=== PATIENT | female | born 1975 | race African-American/Black ===

== ENCOUNTER 2017-01-05 07:35 | Emergency (ER) | payer OTHER ==
[2017-01-05 07:45] VITALS: BP 134/89; PULSE 74; TEMP 98.4; BMI 32.6
[2017-01-05] MEDS ORDERED: ACETAMINOPHEN 1000 MG/100 ML VIAL (NON FORMULARY) IVPB ONE (08:10)
[2017-01-05 08:41] LABS: BASOPHIL 0.4 % (0-2.0); EOSINOPHIL 3.1 % (0-4.5); MCH 23.3 pg (25.7-33.7); MEAN CELL VOLUME 72.9 fl (80-96); MEAN PLT VOLUME 8.1 fl (7.5-11.1); NEUTROPHILS 55.6 % (42.8-82.8); PLATELET COUNT 296 K/MM3 (134-434); RDW 16.3 % (11.6-15.6); WHITE BLOOD COUNT 7.1 K/mm3 (4.0-10.0)
[2017-01-05] MEDS ORDERED: KETOROLAC TROMETHAMINE 15 MG/ML VIAL ONE (08:58)
[2017-01-05] MEDS ORDERED: KETOROLAC TROMETHAMINE 15 MG/ML VIAL IVPUSH ONE (09:02)
--- NOTE | 2017-01-05 09:15 | PDOC ---
History of Present Illness - General Chief Complaint: Urinary Problem Stated Complaint: BACK PAIN Time Seen by Provider: 01/05/17 07:59 - History of Present Illness Initial Comments: 01/05/17 09:05 "The patient is a 41 year old female, with a significant past medical history of HLD and sciatica, who presents to the emergency department with left flank pain and frequent urination for the past 2 days. She describes her pain as ranging from mild to moderate, constant pain, with no radiation. She denies any modifying factors. She denies vaginal bleeding or discharge. Denies midline back pain, denies leg weakness/numbness. Denies saddle anesthesia or incontinence. The patient denies chest pain, shortness of breath, headache and dizziness. Denies fever, chills, nausea, vomit, diarrhea and constipation. Denies dysuria, and hematuria. Allergies: None Past surgical history: Back surgery (L5), left knee surgery Social history: Alcohol use. No tobacco or drug use reported " Past History - Past Medical History Allergies/Adverse Reactions: Allergies Allergy/AdvReac Type Severity Reaction Status Date / Time No Known Allergies Allergy Verified 01/05/17 07:39 Home Medications: Ambulatory Orders Acetaminophen [Tylenol] 650 mg PO PRN PRN 01/05/17 Cyclobenzaprine HCl [Flexeril -] 5 mg PO TID PRN #21 tablet 01/05/17 Naproxen [Naprosyn -] 500 mg PO BID PRN #15 tablet 01/05/17 Anemia: No Asthma: No Cancer: No Cardiac Disorders: No CVA: No COPD: No CHF: No DVT: No Dementia: No Diabetes: No Dialysis: No Hypercholesterolemia: Yes - Reproductive History (#): 6 Para: 3 Therapeutic (s) & number: Yes (1) Spontaneous : 1 - Immunization History Td Vaccination: Yes TDAP Vaccination: No Immunization Up to Date: Yes - Suicide/Smoking/Psychosocial Hx Smoking Status: No Smoking History: Smoker current status UNK Number of Cigarettes Smoked Daily: 0 Information on smoking cessation initiated: No Hx Alcohol Use: Yes Drug/Substance Use Hx: No Substance Use Type: Alcohol Review of Systems - Review of Systems Comments:: 01/05/17 09:07 "GENERAL/CONSTITUTIONAL: No fever or chills. No weakness. HEAD, EYES, EARS, NOSE AND THROAT: No change in vision. No ear pain or discharge. No sore throat.- CARDIOVASCULAR: No chest pain or shortness of breath RESPIRATORY: No cough, wheezing, or hemoptysis. GASTROINTESTINAL: No nausea, vomiting, diarrhea or constipation. GENITOURINARY: (+) Left flank pain and urinary frequency. No dysuria, change in urination. MUSCULOSKELETAL: No joint or muscle swelling or pain. No neck or back pain. SKIN: No rash NEUROLOGIC: No headache, vertigo, loss of consciousness, or change in strength/ sensation. ENDOCRINE: No increased thirst. No abnormal weight change HEMATOLOGIC/LYMPHATIC: No anemia, easy bleeding, or history of blood clots. ALLERGIC/IMMUNOLOGIC: No hives or skin allergy. " *Physical Exam - Vital Signs Last Vital Signs Temp Pulse Resp BP Pulse Ox 98.4 F 74 20 134/89 100 01/05/17 07:39 01/05/17 07:39 01/05/17 07:39 01/05/17 07:39 01/05/17 07:39 - Physical Exam Comments: 01/05/17 09:07 "GENERAL: Awake, alert, and fully oriented, in no acute distress HEAD: No signs of trauma EYES: PERRLA, EOMI, sclera anicteric, conjunctiva clear ENT: Auricles normal inspection, hearing grossly normal, nares patent, oropharynx clear without exudates. Moist mucosa NECK: Nontender, no stepoffs, Normal ROM, supple, no lymphadenopathy, JVD, or masses LUNGS: Breath sounds equal, clear to auscultation bilaterally. No wheezes, and no crackles HEART: Regular rate and rhythm, normal S1 and S2, no murmurs, rubs or gallops ABDOMEN: Soft, nontender, normoactive bowel sounds. No guarding, no rebound. No masses BACK: no midline TTP, no stepoffs, + L CVAT EXTREMITIES: Normal range of motion, no edema. No clubbing or cyanosis. No cords, erythema, or tenderness NEUROLOGICAL: Cranial nerves II through XII intact. 5/5 strength and sensation in all extremities, Normal speech, normal gait SKIN: Warm, Dry, normal turgor, no rashes or lesions noted. " ED Treatment Course - LABORATORY CBC & Chemistry Diagram: 01/05/17 08:30 01/05/17 08:30 - ADDITIONAL ORDERS Additional order review: Laboratory Results 01/05/17 08:25 Urine HCG, Qual Negative 01/05/17 08:30 RBC 4.90 MCV 72.9 L MCHC 32.0 RDW 16.3 H MPV 8.1 Neutrophils % 55.6 D Lymphocytes % 36.1 D Monocytes % 4.8 Eosinophils % 3.1 D Basophils % 0.4 Medical Decision Making - Medical Decision Making 01/05/17 09:07 41 F with L flank pain and urinary frequency. Concerning for pyelo. Also consider kidney stone, though pain is constant and non-radiating. Pt with no midline back pain, no neuro deficits to suggest disk herniation or cord compression. Pt with nontender abdomen, making pelvic or abdominal pathology less likely. - Labs, UA, UCx - UPT - Toradol 01/05/17 11:41 UPT negative. UA completely normal. Pt with no evidence of UTI or kidney stone. Pt reevaluated s/p toradol, now with significant improvement of pain. Etiology of pain likely msk. *DC/Admit/Observation/Transfer Diagnosis at time of Disposition: Low back ache - Discharge Dispostion Disposition: HOME - Prescriptions Prescriptions: Cyclobenzaprine HCl [Flexeril -] 5 mg PO TID PRN #21 tablet PRN Reason: Back Pain Naproxen [Naprosyn -] 500 mg PO BID PRN #15 tablet PRN Reason: Pain - Referrals Referrals: Ayala Shore MD [Primary Care Provider] - - Patient Instructions Printed Discharge Instructions: DI for Low Back Pain Additional Instructions: Follow up with your neurologist regarding your lower back pain. If you experience worsening pain, vomiting, fevers, numbness, weakness, or any other concerning symptoms, return to the ER immediately. - Attestations Physician Attestion: 01/05/17 11:48 I, Dr. Ok Orosco MD, attest that this document has been prepared under my direction and personally reviewed by me in its entirety. I further attest, that it accurately reflects all work, treatment, procedures and medical decision -making performed by me.
[2017-01-05 09:16] LABS: ALBUMIN 3.6 g/dl (3.4-5.0); ALK PHOS 72 U/L (45-117); ANION GAP 10 (8-16); BILIRUBIN,TOTAL 0.3 mg/dL (0.2-1.0); CALCIUM 8.7 mg/dL (8.5-10.1); CO2 26 mmol/L (21-32); CREATININE 0.9 mg/dL (0.55-1.02); GLUCOSE,RANDOM 145 mg/dL (74-106); SGOT/AST 11 U/L (15-37); SGPT/ALT 17 U/L (12-78)
[2017-01-05 09:17] LABS: TOT PROT 7.5 g/dl (6.4-8.2)
[2017-01-05 11:14] LABS: URINE APPEARANCE SLCLOUDY; URINE BILIRUBIN NEGATIVE (NEGATIVE); URINE BLOOD NEGATIVE (NEGATIVE); URINE COLOR YELLOW; URINE GLUCOSE (UA) NEGATIVE (NEGATIVE); URINE KETONE NEGATIVE (NEGATIVE); URINE NITRITE NEGATIVE (NEGATIVE); URINE PROTEIN NEGATIVE (NEGATIVE); URINE UROBILINOGEN NEGATIVE mg/dL (0.2-1.0)
[2017-01-05 15:24] LABS: URINE LEUK ESTERASE TRACE (NEGATIVE)
[2017-01-05 15:25] LABS: URINE RBC 0-3 /hpf (0-3); URINE WBC 0-3 /hpf (3-5)
[2017-01-05 15:26] LABS: URINE BACTERIA FEW /hpf (NEGATIVE)
== END 2017-01-05 13:00 | disposition home or self-care (01) ==
LOC: JER 07:35
PROC: 3E0333Z Introduction of Anti-inflammatory into Peripheral Vein, Percutaneous Approach (ICD-10-PCS; principal; 2017-01-05)
DX: M54.5 Low back pain (principal)
CPT/HCPCS: 36415; 80053; 81003; 81015; 84703; 85025; 87086; 96374; 99281-25

== ENCOUNTER 2017-02-17 14:19 | Emergency (ER) | payer OTHER ==
[2017-02-17 14:23] VITALS: BMI 34.9
--- NOTE | 2017-02-17 14:25 | PDOC ---
Rapid Medical Evaluation Chief Complaint: Pain Time Seen by Provider: 02/17/17 14:22 Medical Evaluation: Allergies Allergy/AdvReac Type Severity Reaction Status Date / Time No Known Allergies Allergy Verified 02/17/17 14:19 02/17/17 14:23 The patient presents with a chief complaint of: RLQ pain, headache, dizziness since Friday, also urinary frequency. LMP 01/28/17 I have performed a brief in-person evaluation of this patient; Pertinent physical exam findings: R lower quadrant tenderness I have ordered the following: CBC, CMP, UA, UC, U preg The patient will proceed to the ED for further evaluation.
[2017-02-17 14:57] LABS: BASOPHIL 0.3 % (0-2.0); EOSINOPHIL 1.3 % (0-4.5); MCHC 31.1 g/dl (32.0-36.0); MEAN PLT VOLUME 8.1 fl (7.5-11.1); NEUTROPHILS 68.7 % (42.8-82.8); PLATELET COUNT 251 K/MM3 (134-434); RDW 16.6 % (11.6-15.6); WHITE BLOOD COUNT 8.2 K/mm3 (4.0-10.0)
[2017-02-17 15:10] LABS: URINE APPEARANCE SLCLOUDY; URINE BILIRUBIN NEGATIVE (NEGATIVE); URINE BLOOD NEGATIVE (NEGATIVE); URINE COLOR YELLOW; URINE GLUCOSE (UA) NEGATIVE (NEGATIVE); URINE KETONE NEGATIVE (NEGATIVE); URINE LEUK ESTERASE TRACE (NEGATIVE); URINE NITRITE NEGATIVE (NEGATIVE); URINE PROTEIN NEGATIVE (NEGATIVE); URINE UROBILINOGEN NEGATIVE mg/dL (0.2-1.0)
[2017-02-17 15:11] LABS: ALBUMIN 3.7 g/dl (3.4-5.0); ALK PHOS 74 U/L (45-117); ANION GAP 7 (8-16); BILIRUBIN,TOTAL 0.3 mg/dL (0.2-1.0); CALCIUM 8.7 mg/dL (8.5-10.1); CO2 30 mmol/L (21-32); CREATININE 1.1 mg/dL (0.55-1.02); GLUCOSE,RANDOM 114 mg/dL (74-106); SGOT/AST 13 U/L (15-37); SGPT/ALT 20 U/L (12-78); TOT PROT 7.8 g/dl (6.4-8.2)
[2017-02-17 15:22] LABS: URINE BACTERIA RARE /hpf (NONE SEEN); URINE MUCUS RARE; URINE RBC 1 /hpf (0-3); URINE WBC 1 /hpf (3-5)
--- NOTE | 2017-02-17 16:48 | PDOC ---
History of Present Illness - General Chief Complaint: Pain Stated Complaint: ABD PAIN Time Seen by Provider: 02/17/17 14:22 - History of Present Illness Initial Comments: 41 year female with PMH of HLD and borderline diabetes presenting with RLQ pain worse with urination 02/17/17 16:22 Past History - Past Medical History Allergies/Adverse Reactions: Allergies Allergy/AdvReac Type Severity Reaction Status Date / Time No Known Allergies Allergy Verified 02/17/17 14:19 Home Medications: Ambulatory Orders Acetaminophen [Tylenol] 650 mg PO PRN PRN 01/05/17 Naproxen [Naprosyn -] 500 mg PO BID PRN #15 tablet 01/05/17 Ibuprofen [Advil -] 200 mg PO PRN 02/17/17 Anemia: Yes Asthma: No Cancer: No Cardiac Disorders: No CVA: No COPD: No CHF: No DVT: No Dementia: No Diabetes: No Dialysis: No Hypercholesterolemia: Yes - Reproductive History (#): 6 Para: 3 Therapeutic (s) & number: Yes (1) Spontaneous : 1 - Immunization History Td Vaccination: Yes TDAP Vaccination: No Immunization Up to Date: Yes - Suicide/Smoking/Psychosocial Hx Smoking Status: No Smoking History: Smoker current status UNK Have you smoked in the past 12 months: No Number of Cigarettes Smoked Daily: 0 Information on smoking cessation initiated: No Hx Alcohol Use: Yes Drug/Substance Use Hx: No Substance Use Type: Alcohol *Physical Exam - Vital Signs Last Vital Signs Temp Pulse Resp BP Pulse Ox 98.3 F 99 H 18 145/88 100 02/17/17 14:21 02/17/17 14:21 02/17/17 14:21 02/17/17 14:21 02/17/17 14:21 ED Treatment Course - LABORATORY CBC & Chemistry Diagram: 02/17/17 14:40 02/17/17 14:40 - ADDITIONAL ORDERS Additional order review: Laboratory Results 02/17/17 02/17/17 14:40 14:40 Sodium 139 Potassium 3.9 Chloride 102 Carbon Dioxide 30 Anion Gap 7 L BUN 12 D Creatinine 1.1 H D Creat Clearance w eGFR 55.01 Random Glucose 114 H D Calcium 8.7 Total Bilirubin 0.3 AST 13 L ALT 20 Alkaline Phosphatase 74 Total Protein 7.8 Albumin 3.7 Urine Color Yellow Urine Appearance Slcloudy Urine pH 6.0 Ur Specific [place] 1.025 Urine Protein Negative Urine Glucose (UA) Negative Urine Ketones Negative Urine Blood Negative Urine Nitrite Negative Urine Bilirubin Negative Urine Urobilinogen Negative Urine WBC (Auto) 1 Urine RBC (Auto) 1 Ur Epithelial Cells Few Urine Bacteria Rare Urine Mucus Rare Urine HCG, Qual Negative 02/17/17 14:40 RBC 4.97 MCV 74.0 L MCHC 31.1 L RDW 16.6 H MPV 8.1 Neutrophils % 68.7 D Lymphocytes % 24.6 D Monocytes % 5.1 Eosinophils % 1.3 Basophils % 0.3
[2017-02-17] MEDS ORDERED: SODIUM CHLORIDE 0.9% 1000 ML INFUS.BAG IV ONE (17:06)
--- NOTE | 2017-02-17 19:05 | PDOC ---
*Physical Exam - Vital Signs Last Vital Signs Temp Pulse Resp BP Pulse Ox 98.3 F 99 H 18 145/88 100 02/17/17 14:21 02/17/17 14:21 02/17/17 14:21 02/17/17 14:21 02/17/17 14:21 ED Treatment Course - LABORATORY CBC & Chemistry Diagram: 02/17/17 14:40 02/17/17 14:40 - ADDITIONAL ORDERS Additional order review: Laboratory Results 02/17/17 02/17/17 14:40 14:40 Sodium 139 Potassium 3.9 Chloride 102 Carbon Dioxide 30 Anion Gap 7 L BUN 12 D Creatinine 1.1 H D Creat Clearance w eGFR 55.01 Random Glucose 114 H D Calcium 8.7 Total Bilirubin 0.3 AST 13 L ALT 20 Alkaline Phosphatase 74 Total Protein 7.8 Albumin 3.7 Urine Color Yellow Urine Appearance Slcloudy Urine pH 6.0 Ur Specific [place] 1.025 Urine Protein Negative Urine Glucose (UA) Negative Urine Ketones Negative Urine Blood Negative Urine Nitrite Negative Urine Bilirubin Negative Urine Urobilinogen Negative Urine WBC (Auto) 1 Urine RBC (Auto) 1 Ur Epithelial Cells Few Urine Bacteria Rare Urine Mucus Rare Urine HCG, Qual Negative 02/17/17 16:44 Group A Strep Rapid Antigen - Final Throat 02/17/17 14:40 RBC 4.97 MCV 74.0 L MCHC 31.1 L RDW 16.6 H MPV 8.1 Neutrophils % 68.7 D Lymphocytes % 24.6 D Monocytes % 5.1 Eosinophils % 1.3 Basophils % 0.3 - Medications Given in the ED: ED Medications Discontinued Medications Generic Name Dose Route Start Last Admin Trade Name Thomasq PRN Reason Stop Dose Admin Sodium Chloride 1,000 ml 02/17/17 17:06 02/17/17 17:18 Normal Saline - IV 02/17/17 17:07 1,000 ml ONCE ONE Administration Medical Decision Making - Medical Decision Making 02/17/17 19:04 Care taken over from Dr. Harris. 02/17/17 19:45 US negative for acute pathology. Labs unconcerning as below. Will instruct patient to f/u with PCP within 1-2 days for further evaluation. Laboratory Results - last 24 hr 02/17/17 02/17/17 02/17/17 14:40 14:40 14:40 WBC 8.2 RBC 4.97 Hgb 11.4 Hct 36.8 MCV 74.0 L MCH 23.0 L MCHC 31.1 L RDW 16.6 H Plt Count 251 MPV 8.1 Neutrophils % 68.7 D Lymphocytes % 24.6 D Monocytes % 5.1 Eosinophils % 1.3 Basophils % 0.3 Sodium 139 Potassium 3.9 Chloride 102 Carbon Dioxide 30 Anion Gap 7 L BUN 12 D Creatinine 1.1 H D Creat Clearance w eGFR 55.01 Random Glucose 114 H D Calcium 8.7 Total Bilirubin 0.3 AST 13 L ALT 20 Alkaline Phosphatase 74 Total Protein 7.8 Albumin 3.7 Urine Color Yellow Urine Appearance Slcloudy Urine pH 6.0 Ur Specific [place] 1.025 Urine Protein Negative Urine Glucose (UA) Negative Urine Ketones Negative Urine Blood Negative Urine Nitrite Negative Urine Bilirubin Negative Urine Urobilinogen Negative Urine WBC (Auto) 1 Urine RBC (Auto) 1 Ur Epithelial Cells Few Urine Bacteria Rare Urine Mucus Rare Urine HCG, Qual Negative *DC/Admit/Observation/Transfer Diagnosis at time of Disposition: Pelvic pain - Discharge Dispostion Disposition: HOME - Referrals Referrals: Ayala Shore MD [Primary Care Provider] - - Patient Instructions Printed Discharge Instructions: DI for Pelvic Pain Additional Instructions: Please return if any increase in nausea, vomiting, pain, fever, chills, or other concerning symptoms. - Post Discharge Activity
--- NOTE | 2017-02-17 19:56 | PDOC ---
Attending Attestation - Resident Resident Name: StevenCatchela - ED Attending Attestation I have performed the following: I have examined & evaluated the patient, The case was reviewed & discussed with the resident, I agree w/resident's findings & plan, Exceptions are as noted - HPI HPI: 02/17/17 19:55 41 yo has c/o rt adnexal pain - Physicial Exam PE: 02/17/17 19:56 wnwd 41 yo female with rt pelvic pain,sore throat head ncat throat no exudates lungs cta b/l cvs [id number] abd no rebiund no guarding pelvic rt adnexal pain neuro axox3,no gross focal deficits skin warm,dry psych appropriate - Medical Decision Making 02/18/17 00:33 labs wnl neg 02/18/17 00:34 US normal pelvic US -discussed w pt signs and symptoms of appendicitis and if she dev these,she should return for treatment
[2017-02-17 19:58] VITALS: BP 144/86; PULSE 98; TEMP 98
[2017-02-17 21:17] LABS: URINE LEUK ESTERASE NEGATIVE (NEGATIVE)
== END 2017-02-17 19:58 | disposition home or self-care (01) ==
LOC: JER 14:19
PROC: 3E0337Z Introduction of Electrolytic and Water Balance Substance into Peripheral Vein, Percutaneous Approach (ICD-10-PCS; principal; 2017-02-17)
DX: R10.2 Pelvic and perineal pain (principal)
CPT/HCPCS: 36415; 76830-TC; 80053; 81003; 81015; 84703; 85025; 87070; 87086; 87430; 99282-25

== ENCOUNTER 2021-05-31 16:52 | Emergency (ER) | payer OTHER ==
[2021-05-31 17:02] VITALS: TEMP 98.4; BMI 34.0
[2021-05-31] MEDS ORDERED: morphine CARPU-JECT 4 MG/1 ML DISP.SYRIN IVPUSH ONE (18:02)
[2021-05-31] MEDS ORDERED: ONDANSETRON 4 MG/2 ML VIAL IVPUSH ONE (18:02)
[2021-05-31 18:43] LABS: BASO % 0.9 % (0-2.0); EOS % 1.6 % (0-4.5); HEMATOCRIT 30.5 % (32.4-45.2); HEMOGLOBIN 9.7 GM/dL (10.7-15.3); LYMPH % 23.8 % (8-40); MCH 23.1 pg (25.7-33.7); MCHC 31.7 g/dl (32.0-36.0); MEAN PLT VOLUME 7.5 fl (7.5-11.1); MONO % 5.9 % (3.8-10.2); NEUT % 67.8 % (42.8-82.8); PLATELET COUNT 322 10^3/uL (134-434); RBC 4.17 M/mm3 (3.60-5.2); RDW 16.6 % (11.6-15.6); WHITE BLOOD COUNT 7.9 K/mm3 (4.0-10.0)
[2021-05-31] MEDS ORDERED: ONDANSETRON 4 MG/2 ML VIAL ONE (18:51)
[2021-05-31] MEDS ORDERED: morphine SULFATE 4 MG/ML VIAL ONE (18:51)
[2021-05-31 19:09] LABS: ALBUMIN 3.8 g/dl (3.4-5.0); BLOOD UREA NITROGEN 13.6 mg/dL (7-18)
[2021-05-31 19:12] LABS: CREATININE 0.9 mg/dL (0.55-1.3)
[2021-05-31 19:13] LABS: BILIRUBIN,TOTAL 0.3 mg/dL (0.2-1); TOT PROT 7.8 g/dl (6.4-8.2)
[2021-05-31 19:26] LABS: EPI CELLS 17 /uL (0-25.1); HYALINE CASTS 0 /uL (0-3.1); PH,URINE 7.5 (5.0-8.0); URINE APPEARANCE CLEAR; URINE BACTERIA 701 /uL (0-1359); URINE BILIRUBIN NEGATIVE (NEGATIVE); URINE COLOR YELLOW; URINE GLUCOSE (UA) NEGATIVE (NEGATIVE); URINE KETONE 1+ (NEGATIVE); URINE LEUK ESTERASE NEGATIVE (NEGATIVE); URINE NITRITE NEGATIVE (NEGATIVE); URINE PROTEIN TRACE (NEGATIVE); URINE RBC 2709 /uL (0-23.9); URINE UROBILINOGEN 0.2 mg/dL (0.2-1.0); URINE WBC 20 /uL (0-25.8)
[2021-05-31 21:42] VITALS: BP 140/82; PULSE 86
== END 2021-05-31 21:41 | disposition home or self-care (01) ==
LOC: JER 16:52
PROC: 3E033NZ Introduction of Analgesics, Hypnotics, Sedatives into Peripheral Vein, Percutaneous Approach (ICD-10-PCS; principal; 2021-05-31)
PROC: 3E033GC Introduction of Other Therapeutic Substance into Peripheral Vein, Percutaneous Approach (ICD-10-PCS; 2021-05-31)
DX: D52.9 Folate deficiency anemia, unspecified (principal)
CPT/HCPCS: 36415; 76830-TC; 80053; 81003; 85025; 86850; 86900; 86901; 87086; 99284-25

== ENCOUNTER 2021-06-03 22:00 | Emergency (ER) | payer OTHER ==
[2021-06-03 22:13] VITALS: BP 122/83; PULSE 64; TEMP 98.1; BMI 34.7
[2021-06-03 22:47] LABS: BASO % 0.4 % (0-2.0); EOS % 1.2 % (0-4.5); HEMATOCRIT 28.8 % (32.4-45.2); HEMOGLOBIN 9.2 GM/dL (10.7-15.3); LYMPH % 16.1 % (8-40); MCH 23.2 pg (25.7-33.7); MCHC 31.9 g/dl (32.0-36.0); MEAN CELL VOLUME 72.7 fl (80-96); MEAN PLT VOLUME 7.2 fl (7.5-11.1); NEUT % 75.3 % (42.8-82.8); PLATELET COUNT 319 10^3/uL (134-434); RBC 3.96 M/mm3 (3.60-5.2); RDW 16.7 % (11.6-15.6)
[2021-06-03 23:05] LABS: ALBUMIN 3.3 g/dl (3.4-5.0); CALCIUM 8.3 mg/dL (8.5-10.1); MAGNESIUM 2.4 mg/dL (1.8-2.4)
[2021-06-03 23:08] LABS: CREATININE 1.2 mg/dL (0.55-1.3); PHOSPHOROUS 2.9 mg/dL (2.5-4.9)
[2021-06-03 23:10] LABS: BILIRUBIN,TOTAL 0.2 mg/dL (0.2-1); TOT PROT 7.1 g/dl (6.4-8.2)
== END 2021-06-04 01:26 | disposition home or self-care (01) ==
LOC: JER 22:00
DX: R42 Dizziness and giddiness (principal)
CPT/HCPCS: 36415; 71045-TC-FY; 80053; 83735; 84100; 84484; 84703; 85025; 86850; 86900; 86901; 93005; 93010; 99285-25

== ENCOUNTER 2021-06-12 04:08 | Day surgery (SDC) | payer OTHER ==
[2021-06-12] MEDS ORDERED: oxyCODONE HCL 5 MG TABLET PO PRN ×2 (07:22→08:51)
[2021-06-12] MEDS ORDERED: ONDANSETRON 4 MG/2 ML VIAL IVPUSH PRN ×2 (07:22→08:51)
[2021-06-12 07:28] VITALS: BMI 34.2
[2021-06-12] MEDS ORDERED: LACTATED RINGERS SOLUTION 1,000 ML IV SCH (07:30)
[2021-06-12] MEDS ORDERED: PROPOFOL 20 ML ONE (08:50)
[2021-06-12] MEDS ORDERED: MIDAZOLAM HCL 2 MG/2 ML SINGLE DOSE VIAL ONE (08:50)
[2021-06-12] MEDS ORDERED: IBUPROFEN 600 MG TABLET (FP) PO PRN (08:51)
[2021-06-12] MEDS ORDERED: IBUPROFEN 800 MG/8 ML IJ IVPB PRN (08:51)
[2021-06-12] MEDS ORDERED: ELECTROLYTE-148 SOLN 1,000 ML IV SCH (09:00)
[2021-06-12] MEDS ORDERED: ONDANSETRON 4 MG/2 ML VIAL ONE (13:02)
[2021-06-12 13:49] VITALS: BP 104/56; PULSE 72; TEMP 97.4
== END 2021-06-12 15:05 | disposition home or self-care (01) ==
LOC: JASU-SURG 04:08
PROVIDERS: ATTEND Obstetrics & Gynecology
PROC: 0UDB8ZX Extraction of Endometrium, Via Natural or Artificial Opening Endoscopic, Diagnostic (ICD-10-PCS; 2021-06-12)
PROC: 0UB98ZZ Excision of Uterus, Via Natural or Artificial Opening Endoscopic (ICD-10-PCS; principal; 2021-06-12 09:00)
DX: N92.0 Excessive and frequent menstruation with regular cycle (principal); D25.9 Leiomyoma of uterus, unspecified; D50.9 Iron deficiency anemia, unspecified
CPT/HCPCS: 81025; 88305-TC; 94760

== ENCOUNTER 2021-08-07 04:25 | Day surgery (SDC) | payer OTHER ==
[2021-08-02 11:53] VITALS: BMI 33.0
[2021-08-07] MEDS ORDERED: MIDAZOLAM HCL 2 MG/2 ML SINGLE DOSE VIAL ONE (09:49)
[2021-08-07] MEDS ORDERED: FENTANYL CITRATE/PF 50 MCG/ML VIAL ONE ×5 (09:49→12:16)
[2021-08-07] MEDS ORDERED: KETOROLAC TROMETHAMINE 30 MG/1 ML VIAL ONE (10:16)
[2021-08-07] MEDS ORDERED: DEXAMETHASONE SOD PHOSPHATE 4 MG/1 ML VIAL ONE (10:16)
[2021-08-07] MEDS ORDERED: oxyCODONE HCL 5 MG TABLET PO PRN (10:56)
[2021-08-07] MEDS ORDERED: ONDANSETRON 4 MG/2 ML VIAL IVPUSH PRN (10:56)
[2021-08-07] MEDS ORDERED: LACTATED RINGERS SOLUTION 1,000 ML IV SCH (11:00)
[2021-08-07] MEDS ORDERED: oxyCODONE HCL 5 MG TABLET ONE (13:52)
[2021-08-07 14:27] VITALS: BP 164/90; PULSE 62; TEMP 97.1
== END 2021-08-07 14:50 | disposition home or self-care (01) ==
LOC: JASU-SURG 04:25
PROVIDERS: ATTEND Obstetrics & Gynecology
PROC: 0U5B8ZZ Destruction of Endometrium, Via Natural or Artificial Opening Endoscopic (ICD-10-PCS; principal; 2021-08-07 10:00)
DX: D25.9 Leiomyoma of uterus, unspecified (principal); N92.0 Excessive and frequent menstruation with regular cycle; D64.9 Anemia, unspecified
CPT/HCPCS: 81025; 94760